=== PATIENT | male | born 1965 | race Caucasian/White ===

== ENCOUNTER 2016-08-25 09:52 | Day surgery (SDC) | payer OTHER ==
[2016-08-25] VITALS (9 sets, daily range): BP systolic 114–127; BP diastolic 70–83; PULSE 74–88; RESP 14–17; O2SAT 95–100
[~2016-08-25] VITALS: Ht 182.9 cm; Wt 82.4 kg
--- NOTE | 2016-08-25 07:12 | PCM.HPANE ---
Patient Data Surgeon Admitting Provider: Attending Provider:Herman Hernandez DO Primary Care Physician:Alex Wilhelm MD Other Provider:Jose Alejandro Davison Anesthesia Reason for Visit Right Elbow Osteoplyte With Bursitis Ht/WT & BMI Height (Feet): 6 Height (Inches): 0 Weight (Kilograms): 84.82 Body Mass Index 25.00 Allergies Coded Allergies: hydromorphone (Verified Allergy, Severe, rash, itching, agitation, 05/27/15) Past Anesthesia History Anesthesia History: Denies:: Abnormal Airway, Anesthesia Reactions, Difficult Intubation, Fam Anesthesia Reaction Diabetes History Hx Diabetes?: No MRSA MRSA: No Medications Reported Medications Acetaminophen 325 Mg [id number] Mg PO Q4H PRN For Pain Ref 0 08/23/16 Trazodone 50 Mg [id number] Mg PO HS PRN Insomnia Ref 0 08/23/16 Omeprazole Magnesium (Prilosec Otc)20 Mg Tablet.dr20 Mg PO DAILY #1 PKG Ref 0 08/23/16 Krill Oil 500 Mg [id number] Mg PO DAILY 08/23/16 Ibuprofen 200 Mg Sosrycb480 Mg PO Q6H PRN For Pain Ref 0 08/23/16 Discontinued Reported Medications Trazodone 50 Mg [id number] Mg PO HS PRN Insomnia Ref 0 06/16/15 Krill Oil 500 Mg [id number] Mg PO DAILY 06/16/15 Lisdexamfetamine Dimesylate (Vyvanse)60 Mg Pmbgpcq81 Mg PO DAILY 30 Days Ref 0 06/16/15 History History of ENT Problems?: Yes HEENT History: Positive for:: Sinus Problem TMJ (no nightguard) Denies:: Abnormal Airway Cataracts Difficult Intubation Dysphagia Hearing Problem Hx of Heart Problems?: No Cardiovascular History: Denies:: AICD Abdominal Aortic Aneurism Atrial Fibrillation Cardiac Surgery Congestive Heart Failure Edema Heart Murmur Hypertension Irregular Heartbeat Pacemaker Rheumatic Fever Thrombophlebitis Hx of Respiratory Problem?: Yes Respiratory History: Positive for:: Pneumonia (last occasion 4 years ago) Denies:: Asthma COPD Dyspnea Emphysema Oxygen Administration Tuberculosis Use of C-PAP Machine (did not tolerate ) Hx Neurologic Problems?: No Neurological History: Denies:: Alzheimer's Disease CVA Headaches Multiple Sclerosis Parkinson's Disease Seizures Hx of GI Problems?: No Gastrointestinal History: Denies:: Cirrhosis Diverticulitis Gastroesphageal Reflux Gastrointestinal Bleeding Heartburn Hepatitis Hiatal Hernia Rectal Bleeding Hx of Problems?: No Genitourinary History: Denies:: Kidney Stones Urinary Tract Infection Male Hx: Denies:: Prostate Problems Scrotal Mass Testicular Surgery Skin History: Positive for:: History Skin Disorders? (bursa- current admission problem) Denies:: Pressure Ulcers Hx Musculoskeletal Problems?: Yes Musculoskeletal History: Positive for:: Musculoskeletal Trauma (right elbow bursa current, prior hx of surgery to on 05/2015) Denies:: Back Injury Degenerative Joint Joint Replacement Systemic Lupus Hx of Psycho/Social Problems?: No Hx Surgeries?: Yes (hernia at age 3. appe, bursectomy) Hx Any Other Health Problems?: Yes Other History: Denies:: Cancer Endocrine Disease Hospitalization Thyroid Disease History Blood Transfusions: Denies:: Blood Transfuse Reaction Blood Transfusions Hx Diabetes: No Hx Alcohol Use: YesHx Substance Use: No Smoking Status: Former Smoker Have You Smoked inLast 12 mo: No Stop/Bang S-Snoring: Do You Snore Loudly: Yes T-Tired: feel tired, fatigued: No O-Obsered: Observed not breath: Yes P-Blood Pressure: treated: No B- Body Mass Index > 35 kg/m2: No A- Age over 50: No N- Neck Large Circumference: No G- Gender Male: Yes DAYAMI Total Score: 3 DAYAMI Risk Assessment: Low Risk, <3 Yes Risk Assessment Category Category 1A: Patient has history of documented sleep apnea, and HAS NOT received any narcotic, sedative or anesthesia administration during this stay. Category 1B: Patient has history of documented sleep apnea, and HAS received any narcotic , sedative or anesthesia administration during this stay Category 2: Patient has SUSPECTED Obstructive Sleep Apnea, and HAS received any narcotic , sedative or anesthesia administration during this stay. Category 3: Patient has SUSPECTED Obstructive Sleep Apnea and HAS NOT received narcotic, sedative or anesthesia administration during this stay. Category 4: Outpatient in Procedural Areas with known sleep apnea or who screen positive for High Risk via the STOP/BANG questionnaire. Exam Exam General Appearance: Alert, Oriented X3, Cooperative, No Acute Distress HEENT/AIRWAY: MP 2 Lungs: Clear to Auscultation, Normal Air Movement Heart: Exam Unremarkable, Regular Rate/Rhythm, No Murmurs/Rubs/Gallops Plan Impression Patient chart reviewed, patient interviewed and anesthestic plan with risks, benefits, and alternatives discussed, and informed consent obtained. NPO Status: clears to 0730 ASA Physical Status: ASA1 Normal Healthy Anesthetic Plan: GA Bene/Risks/Altern/Consents: Yes HP Complete Prior to Induction: Yes Regis Valdez MD Aug 25, 2016 07:12
[~2016-08-25 09:52] MED LIST: ACET325T51 PO; CeFAZolin Inj 2 GM in IV Premix 1 EACH IV ONE; IBUP200C PO; KRIL500C PO; Lactated Ringer's 1,000 ML IV SCH; OMEP20TA24 PO; TRAZ-115 PO
[2016-08-25] MEDS ORDERED: Dexamethasone 4 mg/mL Inj ONE (09:53)
[2016-08-25] MEDS ORDERED: fentaNYL-PF 50 mCg/mL 2 mL Inj ONE (09:53)
[2016-08-25] MEDS ORDERED: Ondansetron 2 mg/mL 2 mL Inj ONE (09:53)
[2016-08-25] MEDS ORDERED: Propofol 10,000 mCg/mL 20 mL Inj ONE (09:53)
[2016-08-25] MEDS ORDERED: Lactated Ringer's 1,000 ML IV ONE (10:24)
[2016-08-25] MEDS ORDERED: CeFAZolin Inj 2 gm / 50mL D5W IV ONE (10:51)
[2016-08-25] MEDS ORDERED: Lactated Ringer's 1,000 ML IV SCH (12:44)
[2016-08-25] MEDS ORDERED: Lactated Ringer's 500 ML IV PRN (12:44)
[2016-08-25] MEDS ORDERED: MetoCLOpramide 5 mg/mL 2 mL Inj IVPUSH PRN (12:45)
[2016-08-25] MEDS ORDERED: Ondansetron 2 mg/mL 2 mL Inj IVPUSH PRN (12:45)
[2016-08-25] MEDS ORDERED: EPHEDrine Sulfate 50 mg/mL Inj IVPUSH PRN (12:45)
[2016-08-25] MEDS ORDERED: HYDROmorphone 1 mg/mL Inj IVPUSH PRN (12:45)
[2016-08-25] MEDS ORDERED: Phenylephrine 10,000 mCg/mL Inj IVPUSH PRN (12:45)
[2016-08-25] MEDS ORDERED: Labetalol 5 mg/mL 4 mL Inj IV PRN (12:45)
[2016-08-25] MEDS ORDERED: Dexamethasone 4 mg/mL Inj IVPUSH PRN (12:45)
[2016-08-25] MEDS ORDERED: Atropine 0.4 mg/mL Inj IVPUSH PRN (12:45)
[2016-08-25] MEDS ORDERED: Lidocaine 1%-Epi 1:100,000 20 mL Inj INFILTRATE ONE (12:47)
[2016-08-25] MEDS ORDERED: HYDROcodone-APAP 7.5-325 mg Tablet PO PRN (13:25)
--- NOTE | 2016-08-25 13:53 | PCM.ANEP1 ---
Post Anesthesia Phase 1 PACU Phase 1 Assessment Vital Signs Vital Signs Date Time Temp Pulse Resp B/P Pulse Ox O2 Delivery O2 Flow Rate FiO2 08/25/16 13:40 88 15 123/83 96 Simple Mask 10 08/25/16 13:35 85 14 122/83 97 Simple Mask 10 08/25/16 13:30 36.5 80 15 126/76 99 Simple Mask 10 08/25/16 10:15 36.5 74 14 116/70 100 Room Air Anesthetic Administered: GA Level of Alertness: Awake, talking WELLS's with Equal Strength: Yes Pain: No Nausea or Vomiting: No Oxygen Delivery: Simple Mask Lungs: Clear to Auscultation, Normal Air Movement Regis Valdez MD Aug 25, 2016 13:53
[2016-08-25] MEDS: fentaNYL-PF 50 mCg/mL 2 mL Inj IVPUSH PRN ×2 (14:00→14:05)
--- NOTE | 2016-08-25 14:33 | PCM.ANEP2 ---
Post Anesthesia Evaluation ASA/CMS Post Anesthesia VS in Patient's Normal Range?: Yes Resp Stable; Airway Patent?: Yes CV Function & Hydration Stable: Yes Mental Status Recovered?: Yes Pain control Satisfactory?: Yes N/V Control Satisfactory?: Yes Regis Valdez MD Aug 25, 2016 14:33
--- NOTE | 2016-08-26 15:22 | OP ---
[address] [address] OPERATIVE REPORT PATIENT: CHIQUITA SANDERS : 1965 MR#: [id number] ADMIT: 08/25/2016 JOB ID: [id number] DATE OF SURGERY: 08/25/2016 PREOPERATIVE DIAGNOSIS(ES): 1. Right recurrent olecranon bursitis. 2. Right olecranon osteophyte. POSTOPERATIVE DIAGNOSIS(ES): 1. Right recurrent olecranon bursitis. 2. Right olecranon osteophyte. PROCEDURE: 1. Revision right olecranon bursectomy. 2. Right olecranon ostectomy. SURGEON: Herman Hernandez D.O. VAMP LINER: Ysabel Flores PA-C ANESTHESIA: General. HISTORY: The patient is a pleasant 51-year-old male who has had longstanding history of right elbow pain. He was originally treated conservatively and eventually underwent a right elbow bursectomy by Nima Musa. He had recurrence of pain. There was no fluid collection but there was a palpable bursa as well as a large osteophyte that continued to be painful and discussed with the patient after failure of conservative treatment her option to proceed with surgery for reexcision of olecranon bursa as well as the olecranon osteophyte. He understood the risks include, but not limited to, neurovascular injury, tendon injury, infection, failure to resolve the patient's preoperative symptoms, stiffness, persistent pain, all which may require further intervention. The patient had all questions answered. Consent was signed and placed in the chart. PROCEDURE IN DETAIL: The patient was brought to the operating room suite and placed supine on the operating room table. Surgical time-out was performed. Everyone in the room was in agreement. After the appropriate anesthesia was obtained, a right upper arm tourniquet was applied and the right upper extremity was prepped and draped in a sterile fashion. Right upper extremity was then exsanguinated. Tourniquet inflated to 250 mmHg. The patient's previous curvilinear incision was utilized. Dissection was carried down to the recurrent bursa. The bursa was freed up from the surrounding soft tissues and excised. This was followed by exposure of the large olecranon osteophyte. The olecranon osteophyte was then debrided with a rongeur to a smooth surface and then rasped to ensure that no more prominences remained. Verification of excision of the osteophyte was verified under fluoroscopy. Copious irrigation was then performed followed by closure of the subcutaneous tissues with Vicryl and a nylon for the skin. The patient was then placed in a well-padded, well-molded long-arm posterior splint. ESTIMATED BLOOD LOSS: Less than 1 cc. COMPLICATIONS: None. DISPOSITION: The patient tolerated the procedure well. Anesthesia was reversed and the patient was transferred back to recovery. POSTOPERATIVE PLAN: The patient will followup in my office in two weeks. We will remove the patient's sutures at that time and have him start working on gentle range of motion. [place]
== END 2016-08-25 23:59 | disposition home or self-care (01) ==
LOC: SAS 09:52
PROVIDERS: ATTEND Orthopaedic Surgery
DX: M25.721 Osteophyte, right elbow (principal); M70.21 Olecranon bursitis, right elbow; M77.01 Medial epicondylitis, right elbow